=== PATIENT | female | born 1995 | race Caucasian/White ===

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

== ENCOUNTER 2017-01-24 18:13 | Outpatient (CLI) | payer OTHER ==
[2017-01-24 19:09] LABS: APPEARANCE,URINE CLOUDY; BILIRUBIN,URINE NEGATIVE (NEGATIVE); GLUCOSE, URINE NEGATIVE (NEGATIVE); KETONES,URINE TRACE mg/dL (NEGATIVE); LEUKOCYTE ESTERASE,URINE LARGE (NEGATIVE); NITRITE,URINE NEGATIVE (NEGATIVE); PROTEIN,URINE 30 mg/dL (NEGATIVE)
--- NOTE | 2017-01-24 19:21 | Non Stress Test Report ---
Non Stress Test Datetime Report Generated by CPN: 01/24/2017 19:20 DEMOGRAPHIC EGA NST: 37.4 INDICATION Indication for Study: Ordered by Provider Indication for Study (NST) Other: LC MONITORING Monitor Explained: Monitor Explained; Test Explained; Patient Verbalized Understanding Time on Monitor: 01/24/2017 18:55 Time off Monitor: 01/24/2017 19:15 NST Duration: 20 NST INTERVENTIONS NST Interventions: IV Fluids Physician Notified NST: Dr. Neilsen BABY A: [id number] BABY A Movement : Present Contraction Frequency : irr FHR Baseline : 135 Accelerations : 15X15 Decelerations : None Variability : Moderate 6-25bpm NST Review: Meets Criteria for Reactive NST NST Results: Reactive NST REPORT Report Trigger: Send Report
[2017-01-24 19:29] LABS: URINE BARBITURATES SCREEN NEGATIVE; URINE METHADONE SCREEN NEGATIVE; URINE OPIATES LOW NEGATIVE; URINE PHENCYCLIDINE SCREEN NEGATIVE
== END 2017-01-24 19:20 | disposition home or self-care (01) ==
LOC: LC 18:13
PROVIDERS: ATTEND Specialist
PROC: 4A1HXCZ Monitoring of Products of Conception, Cardiac Rate, External Approach (ICD-10-PCS; principal; 2017-01-24)
DX: O36.8130 Decreased fetal movements, third trimester, not applicable or unspecified (principal); O26.893 Other specified pregnancy related conditions, third trimester; R10.9 Unspecified abdominal pain; Z3A.37 37 weeks gestation of pregnancy
CPT/HCPCS: 59025; 80307; 81005

== ENCOUNTER 2017-02-02 20:46 | Outpatient (CLI) | payer OTHER ==
[2017-02-02 21:57] LABS: URINE BARBITURATES SCREEN NEGATIVE; URINE METHADONE SCREEN NEGATIVE; URINE OPIATES LOW NEGATIVE; URINE PHENCYCLIDINE SCREEN NEGATIVE
[2017-02-02 22:00] LABS: APPEARANCE,URINE SLIGHTLY-CLOUDY; BILIRUBIN,URINE NEGATIVE (NEGATIVE); GLUCOSE, URINE NEGATIVE (NEGATIVE); KETONES,URINE NEGATIVE (NEGATIVE); LEUKOCYTE ESTERASE,URINE TRACE (NEGATIVE); NITRITE,URINE NEGATIVE (NEGATIVE); PROTEIN,URINE 30 mg/dL (NEGATIVE); URINE SPECIFIC GRAVITY 1.031
== END 2017-02-02 22:28 | disposition home or self-care (01) ==
LOC: LC 20:46
PROVIDERS: ATTEND Student in an Organized Health Care Education/Training Program
DX: O47.1 False labor at or after 37 completed weeks of gestation (principal); Z3A.38 38 weeks gestation of pregnancy
CPT/HCPCS: 59025; 80307; 81005

== ENCOUNTER 2017-02-03 07:44 | Inpatient (IN) | payer OTHER ==
--- NOTE | 2017-02-03 07:51 | Non Stress Test Report ---
Non Stress Test Datetime Report Generated by CPN: 02/03/2017 07:51 DEMOGRAPHIC Test Number: 2 EGA NST: 38.6 INDICATION Indication for Study: Ordered by Provider MONITORING Monitor Explained: Monitor Explained; Test Explained; Patient Verbalized Understanding Time on Monitor: 02/02/2017 21:03 Time off Monitor: 02/02/2017 22:17 NST Duration: 74 NST INTERVENTIONS NST Interventions: PO Hydration Physician Notified NST: Dr Zee BABY A: [id number] BABY A Movement : Present Contraction Frequency : 4-11 FHR Baseline : 130 Accelerations : 15X15 Decelerations : None Variability : Moderate 6-25bpm NST Review: Meets Criteria for Reactive NST NST Review and Verified By : RICKY VICENTE Results: Reactive NST REPORT Report Trigger: Send Report
[2017-02-03] MEDS ORDERED: RINGERS SOLUTION,LACTATED 1,000 ML IV PRN (08:12)
[2017-02-03] MEDS ORDERED: RINGERS SOLUTION,LACTATED 1,000 ML IV ONE (08:12)
[2017-02-03 08:23] LABS: APPEARANCE,URINE CLOUDY; BILIRUBIN,URINE NEGATIVE (NEGATIVE); GLUCOSE, URINE NEGATIVE (NEGATIVE); KETONES,URINE NEGATIVE (NEGATIVE); LEUKOCYTE ESTERASE,URINE MODERATE (NEGATIVE); NITRITE,URINE NEGATIVE (NEGATIVE); PROTEIN,URINE 100 mg/dL (NEGATIVE); URINE SPECIFIC GRAVITY 1.027
[2017-02-03] MEDS ORDERED: OXYTOCIN/NORMAL SALINE 20 UNIT/1,000 ML RTUINJ ONE (08:35)
[2017-02-03] MEDS ORDERED: LIDOCAINE 1% INJ-PF (10 MG/ML) 30 ML SDV ONE (08:35)
[2017-02-03] MEDS ORDERED: MISOPROSTOL 0.2 MG TABLET ONE (08:35)
[2017-02-03 08:52] LABS: URINE BARBITURATES SCREEN NEGATIVE; URINE METHADONE SCREEN NEGATIVE; URINE OPIATES LOW NEGATIVE; URINE PHENCYCLIDINE SCREEN NEGATIVE
[2017-02-03 08:54] LABS: ABSOLUTE EOSINOPHILS # (AUTO) 0.1 10^3/uL (0.0-0.6); ABSOLUTE LYMPHOCYTES (AUTO) 1.4 10^3/uL (0.5-4.7); ABSOLUTE MONOCYTES (AUTO) 0.7 10^3/uL (0.1-1.4); ABSOLUTE NEUT (AUTO) 9.7 10^3/uL (1.7-8.2); BASOPHILS % (AUTO) 0.2 % (0-2); EOSINOPHILS % (AUTO) 0.7 % (0-6); HEMATOCRIT 31.9 % (36.0-47.0); HEMOGLOBIN 10.2 g/dL (12.0-15.5); HGB HCT DIFFERENCE -1.3; MEAN CORPUSCULAR HEMOGLOBIN 24.5 pg (27.0-33.4); MEAN CORPUSCULAR VOLUME 76 fl (80-97); MONOCYTES % (AUTO) 5.7 % (3-13); RED BLOOD COUNT 4.18 10^6/uL (3.72-5.28); RED CELL DISTRIBUTION WIDTH 15.7 % (11.5-14.0); SEGMENTED NEUTROPHILS % (AUTO) 81.4 % (42-78); WHITE BLOOD COUNT 11.9 10^3/uL (4.0-10.5)
[2017-02-03] MEDS ORDERED: MEASLES,MUMPS&RUBELLA VACC/PF 0.5 ML VIAL SUBCUT PRN (09:36)
[2017-02-03] MEDS ORDERED: BENZOCAINE/MENTHOL AEROSOL SPRAY 56 ML TOP PRN (09:36)
[2017-02-03] MEDS ORDERED: DIPH/PERTUSS(ACELL)/TETANUS VAC/PF 0.5 ML SYR (>=10YO) IM PRN (09:36)
[2017-02-03] MEDS ORDERED: DIBUCAINE 1% OINTMENT 28 GM TP PRN (09:36)
[2017-02-03] MEDS ORDERED: ACETAMINOPHEN WITH CODEINE #3 TABLET PO PRN (09:36)
[2017-02-03] MEDS ORDERED: OXYTOCIN/NORMAL SALINE 1,000 ML IV PRN (09:36)
[2017-02-03] MEDS ORDERED: ZOLPIDEM TARTRATE 5 MG TABLET PO PRN (09:36)
[2017-02-03] MEDS ORDERED: IBUPROFEN 800 MG TABLET ONE (09:49)
--- NOTE | 2017-02-03 11:17 | Admission Physical ---
Datetime Report Generated by CPN: 02/03/2017 11:17 CURRENT ADMISSION Chief Complaint: Uterine Contractions Indication for Induction: Not Applicable Admit Plan: Admit to Unit ALLERGIES Medication Allergies: No Medication Allergies: No Known Allergies (02/02/2017) Medication Allergies: No Known Allergies (01/24/2017) Medication Allergies: No Known Allergies (08/29/2016) Latex: No Latex Allergies Food Allergies: none Environmental Allergies: none OBSTETRICAL HISTORY EDC: 02/10/2017 00:00 : 1 Para: 0 Term: 0 : 0 SAB: 0 IAB: 0 Ectopic: 0 Livin Cesareans: 0 VBACs: 0 Multiple Births: 0 Gestational Diabetes: No Rh Sensitization: No Incompetent Cervix: No ODALYS: No Infertility: No ART Treatment: No Uterine Anomaly: No IUGR: No Hx Previous C/S: No Macrosomia: No Hx Loss/Stillborn: No PIH: No Hx : No Placenta Previa/Abruption: No Depression/PP Depression: No PTL/PROM: No Post Hemorrhage: No Current Procedures: Ultrasound; NST Obstetrical History Comments: G1: Current SEE RECORDS Alcohol: No Marijuana : No Cocaine: No Other Illicit Drugs: No Cigarettes: Never Smoker. [id number] MEDICAL HISTORY Diabetes: No Blood Transfusion: No Pulmonary Disease (Asthma, TB): No Breast Disease: No Hypertension: No Class C Truck Driver Surgery: No Heart Disease: No Hosp/Surgery: No Autoimmune Disorder: No Anesthetic Complications: No Kidney Disease: No Abnormal Pap Smear: No Neuro/Epilepsy: No Psychiatric Disorders: No Other Medical Diseases: No Hepatitis/Liver Disease: No Significant Family History: No Varicosities/Phlebitis: No Trauma/Violence : No Thyroid Dysfunction: No INFECTIOUS HISTORY Gonorrhea: No Genital Herpes: No Chlamydia: No Tuberculosis: No Syphilis: No Hepatitis: No HIV/AIDS Exposure: No Rash or Viral Illness: No HPV: No PHYSICAL EXAM General: Normal HEENT: Normal Neurologic: Normal Thyroid: Deferred Heart: Normal Lungs: Normal Breast: Normal Back: Normal Abdomen: Normal Genitourinary Exam: Normal Extremities: Normal DTRs: Normal Pelvic Type: Adequate Vital Signs: Reviewed VAGINAL EXAM Dilatation: 7 Effacement: 100 Station: 0 Contraction Comments: every 2-5 MEMBRANES Membranes: Ruptured Amniotic Fluid Color: Clear FETUS A EGA: 39.0 Monitoring: External US FHR- Baseline: 125 Variability: Moderate 6-25bpm Accelerations: 15X15 FHR Category: Category I Estimated Weight (gm): 3400 Presentation: Vertex Admit Comment: Ctx every 3 min, unsure if she is leaking, denies bleeding, states active baby. Naval pt, records requested Pt states she is gbs is negative Pt has no significant medical hx, no surgical hx, denies past sti, denies smoking, drug, and etoh hx NKDA Admit to L _ D May have epdiural prn Anticipate PLANS FOR LABOR AND DELIVERY Labor and Delivery: None Other Pain Management Plans: undecided Feeding Preference: Both Circumcision: Yes INFORMED CONSENT Assignment: Mirela Pope MD Signature: with User ID: Rachelle : with User ID: [email or web address]
[2017-02-03] MEDS: SENNOSIDES/DOCUSATE 8.6-50 MG 1 EACH TABLET PO SCH (13:51)
[2017-02-03] MEDS: PRENATAL VITAMIN W-O CA NO5/FE FUMARATE/FA CAPSULE PO SCH (13:51)
[2017-02-03] MEDS: DOCUSATE SODIUM 100 MG CAPSULE PO SCH ×2 (13:51→17:25)
[2017-02-03] MEDS: FERROUS SULFATE 325 MG TABLET PO SCH ×2 (13:51→17:25)
[2017-02-03] MEDS: IBUPROFEN 800 MG TABLET PO SCH ×2 (14:10→22:46)
[2017-02-03] MEDS: ACETAMINOPHEN WITH CODEINE #3 TABLET PO PRN (19:06)
[2017-02-04] MEDS: IBUPROFEN 800 MG TABLET PO SCH ×3 (06:12→21:36)
[2017-02-04 07:39] LABS: HEMOGLOBIN 9.3 g/dL (12.0-15.5); HGB HCT DIFFERENCE -1.1; MEAN CORPUSCULAR HEMOGLOBIN 24.6 pg (27.0-33.4); MEAN CORPUSCULAR VOLUME 77 fl (80-97); RED BLOOD COUNT 3.77 10^6/uL (3.72-5.28); WHITE BLOOD COUNT 10.6 10^3/uL (4.0-10.5)
[2017-02-04] MEDS: FERROUS SULFATE 325 MG TABLET PO SCH ×2 (09:21→17:46)
[2017-02-04] MEDS: DOCUSATE SODIUM 100 MG CAPSULE PO SCH ×2 (09:22→17:51)
[2017-02-04] MEDS: PRENATAL VITAMIN W-O CA NO5/FE FUMARATE/FA CAPSULE PO SCH (09:22)
[2017-02-04] MEDS: SENNOSIDES/DOCUSATE 8.6-50 MG 1 EACH TABLET PO SCH (09:22)
--- NOTE | 2017-02-04 09:31 | Delivery Summary ---
Del Sum A-C Datetime Report Generated by CPN: 02/04/2017 09:31 DELIVERY PERSONNEL DELIVERY PERSONNEL: [phone] DELIVERY PERSONNEL: [phone] DELIVERY PERSONNEL: [phone] Delivery Doctor:: Karina Schafer CNM Nurse Land Measurer Certified:: Karina Schafer CNM Labor and Delivery Nurse:: May Garcia RN Labor and Delivery Nurse:: Raymond Parker RN Farm Labor Contractor:: STANLEY Herrera Stator Tester/OUTPATIENT SURGERY RN: Zoey Randolph CNA II MATERNAL INFORMATION Delivery Anesthesia: Local Medications After Delivery: Pitocin Bolus-Please Comment; Pitocin Drip 20 Units/1000ml NSS Estimated Blood Loss (ml): 200 Maternal Complications: None Provider Comments: Pt progressed to C + 3 with strong urge to push. Pushed effectively, head, shoulders, and body delivered without difficulty. Infant with spontaneous cry and respirations, to maternal abdomen, cord clamped X2, cut free by pts . Spontaneous delivery of placenta, apears intact, 3VC. Vaginal and perineum inspected bilateral periuretheral lacs repaired with lidocaine as above. Hemostasis acheived with external fundal massage and IV pitocin. Routine pp care, mother and baby in stable condition LABOR SUMMARY EDC: 02/10/2017 00:00 No. Babies in Womb: 1 Attempted: No Labor Anesthesia: None LABOR INFORMATION Reason for Induction: Not Applicable Onset of Labor: 02/03/2017 03:00 Complete Dilatation: 02/03/2017 08:46 Oxytocin: N/A Steroids Given: None Reason Steroids Not Administered: Not Applicable MEMBRANES Membranes Rupture Method: Artificial Rupture of Membranes: 02/03/2017 08:40 Length of Rupture (hr): 0.25 Amniotic Fluid Color: Clear Amniotic Fluid Amount: Small STAGES OF LABOR Stage 1 hr: 5 Stage 1 min: 46 Stage 2 hr: 0 Stage 2 min: 9 Stage 3 hr: 0 Stage 3 min: 4 Total Time in Labor hr: 5 Total Time in Labor min: 59 VAGINAL DELIVERY Episiotomy: None Laceration Extension: First Degree Laceration Type: Periurethral Laceration Repair: Yes Laceration Repair Note: bilateral periuretheral lacerations repiared with 3-0 vicryl using interrupted sutures CSECTION DELIVERY Primary Indication: N/A Secondary Indication: N/A CSection Incidence: N/A Labor: N/A Elective: N/A CSection Incision: N/A BABY A INFORMATION Delivery Date/Time: 02/03/2017 08:55 Method of Delivery: Vaginal Born in Route : No : N/A Forceps: N/A Forceps: N/A Vacuum Extraction: N/A Vacuum Extraction: N/A Shoulder Dystocia : No PRESENTATION/POSITION BABY A Presentation: Cephalic Cephalic Presentation: Vertex Breech Presentation: N/A PLACENTA INFORMATION BABY A Placenta Delivery Time : 02/03/2017 08:59 Placenta Method of Delivery: Spontaneous Placenta Status: Delivered SCORES BABY A Heart Rate 1 min: >100 bpm Resp Effort 1 min: Good Cry Reflex Irritability 1 min: Cough or Sneeze or Pulls Away Muscle Tone 1 min: Active Motion Color 1 min: Blue/Pale Resuscitation Effort 1 min: Tactile Stimulation SCORE 1 MIN: 8 Heart Rate 5 min: >100 bpm Resp Effort 5 min: Good Cry Reflex Irritability 5 min: Cough or Sneeze or Pulls Away Muscle Tone 5 min: Active Motion Color 5 min: Body [place], Extremities Blue Resuscitation Effort 5 min: N/A SCORE 5 MIN: 9 Resuscitation Effort 10 min: N/A INFORMATION BABY A Gestational Age at Delivery: 39.0 Gestational Status: Full Term- 39- 40.6 Weeks Infant Outcome : Liveborn Infant Condition : Stable Sex: Male IDENTIFICATION BABY A Verification Date/Time: 02/03/2017 09:17 ID Band Number: [id number] Mother's Name Verified: Yes Infant RN Verifying Infant: K Edis RNC/D [place] RNC WEIGHT/LENGTH BABY A Infant Birthweight (gm): 2930 Weight (lb): 6 Infant Weight (oz): 7 Infant Length (in): 19.50 Length (cm): 49.53 CORD INFORMATION BABY A No. Cord Vessels: 3 Nuchal Cord : N/A Infant Suction: None ASSESSMENT BABY A Infant Complications: None Physical Findings at Delivery: Molding of the Head Respirations: Appears Normal Skin to Skin: Yes Skin to Skin: Yes Skin to Skin: Yes Skin to Skin: Yes Skin to Skin Time (min): 60 Jack Spinner/ALS Called : No Care By: Santiago Randhawa RNC/C Parker RN Transferred To: Remains with Mother BABY B INFORMATION : N/A SIGNATURES Assignment: Mirela Pope MD Signature: with User ID: Rachelle : with User ID: [email or web address]
--- NOTE | 2017-02-04 12:19 | PDOC PROGRESS REPORT ---
Subjective-OB Subjective: Post Delivery Day:1 21 year old G1 now P1 s/p ppd1. Ambulating, voiding and without difficulty. Denies any needs at this time . Physical Exam (OB) Vital Signs: Temp Pulse Resp BP Pulse Ox 97.7 F 74 16 122/61 99 02/04/17 06:14 02/04/17 06:14 02/04/17 06:14 02/03/17 19:50 02/04/17 06:14 - General General Appearance: Appears well In distress: None - PIH/Pre-Eclampsia DTR's: 2 + Clonus: Negative Headache: Absent Epigastric Pain: No Visual Changes: No - Episiotomy/Laceration Site Condition: Well Approximated - Lochia Lochia Amount: Small 10-25 ml Lochia Color: Rubra/Red - Abdomen Description: Soft, Round Hernia Present: No Fundal Description: Firm, Midline Fundal Height: u/u - u/2 - Respiratory Respiratory Status: No respiratory distress - Extremities Upper extremity: Normal inspection Lower extremities: Normal inspection - Neurological Cognition: Normal Orientation: AAOx4 - Psychological Associated symptoms: Normal affect, Normal mood Objective-Diagnostic Laboratory: 02/04/17 07:20 02/04/17 07:20 WBC 10.6 H RBC 3.77 Hgb 9.3 L Hct 29.0 L MCV 77 L MCH 24.6 L MCHC 32.0 RDW 16.0 H Plt Count 165 Assessment and Plan(PN) - Assessment and Plan (1) Vaginal delivery Is this a current diagnosis for this admission?: YesPlan: continue stay (2) Anemia affecting in third trimester Is this a current diagnosis for this admission?: YesPlan: feso4 supplementation and inc. dietary iron - Time Spent with Patient Time with patient: 15-25 minutes Medications reviewed and adjusted accordingly: Yes - Disposition Anticipated Discharge: Home Within: within 24 hours
[2017-02-04] MEDS: ACETAMINOPHEN WITH CODEINE #3 TABLET PO PRN (19:48)
[2017-02-05] MEDS: IBUPROFEN 800 MG TABLET PO SCH ×2 (05:34→13:55)
[2017-02-05 08:27] VITALS: BP 106/54
--- NOTE | 2017-02-05 09:18 | PDOC PROGRESS REPORT ---
Subjective-OB Subjective: Post Delivery Day: 21 year old. Denies any needs at this time. Ready to go home. Physical Exam (OB) Vital Signs: Temp Pulse Resp BP Pulse Ox 98.1 F 75 14 106/54 L 100 02/05/17 07:30 02/05/17 07:30 02/05/17 07:30 02/05/17 07:30 02/05/17 07:30 - PIH/Pre-Eclampsia DTR's: 2 + Clonus: Negative Headache: Absent Epigastric Pain: No Visual Changes: No - Lochia Lochia Amount: Small 10-25 ml Lochia Color: Rubra/Red - Abdomen Description: Soft, Distended Hernia Present: No Bowel Sounds: Normoactive Flatus Presence: Present Stool: Yes Fundal Description: Firm, Midline Fundal Height: u/u - u/2 Objective-Diagnostic Laboratory: 02/04/17 07:20 Assessment and Plan(PN) - Time Spent with Patient Medications reviewed and adjusted accordingly: Yes - Disposition Anticipated Discharge: Home
[2017-02-05] MEDS: SENNOSIDES/DOCUSATE 8.6-50 MG 1 EACH TABLET PO SCH (09:19)
[2017-02-05] MEDS: DOCUSATE SODIUM 100 MG CAPSULE PO SCH (09:19)
--- NOTE | 2017-02-05 09:24 | PDOC DISCHARGE SUMMARY ---
Final Diagnosis Discharge Date: 02/05/17 - Final Diagnosis (1) Anemia affecting in third trimester Is this a current diagnosis for this admission?: Yes (2) Is this a current diagnosis for this admission?: Yes (3) Vaginal delivery Is this a current diagnosis for this admission?: Yes Discharge Data - Discharge Medication Home Medications: Cld612/FA/Omega3/Dha/Fish Oil [ Gummies] 1 each PO DAILY #30 tab.chew Ferrous Sulfate [Feosol 325 mg Tablet] 325 mg PO BID #60 tablet 02/05/17 Gestational Age: 39.0 wks Reason(s) for Admission: Onset of Labor Procedures: NST Intrapartum Procedure(s): Spontaneous Vaginal Delivery - Adams Data Baby 1 Male at 1 minute: 8 at 5 minutes: 9 Weight: 2.92 kg Home with Mother: Yes Complications: No - Diagnosis Test Laboratory: Temp Pulse Resp BP Pulse Ox 98.1 F 75 14 106/54 L 100 02/05/17 07:30 02/05/17 07:30 02/05/17 07:30 02/05/17 07:30 02/05/17 07:30 02/03/17 02/03/17 02/04/17 07:53 08:35 07:20 RBC 4.18 3.77 Hgb 10.2 L 9.3 L Hct 31.9 L 29.0 L Urine Opiates Screen NEGATIVE - Discharge information/Instructions Discharge Activity: Activity As Tolerated, Balance Activity w/Rest, Pelvic Rest , Slowly Increase Activity, No tub bath Discharge Diet: Regular Disposition: HOME, SELF-CARE Follow up with: [facility] in: 4, Weeks
[2017-02-05] MEDS: PRENATAL VITAMIN W-O CA NO5/FE FUMARATE/FA CAPSULE PO SCH (09:44)
[2017-02-05] MEDS: FERROUS SULFATE 325 MG TABLET PO SCH (09:44)
== END 2017-02-05 15:45 | disposition home or self-care (01) | DRG 775 ==
LOC: LC 07:44 → LR 08:12 → 2S 10:55
PROVIDERS: ADMIT Specialist; ATTEND Specialist
PROC: 10E0XZZ Delivery of Products of Conception, External Approach (ICD-10-PCS; principal; 2017-02-03)
PROC: 0UQMXZZ Repair Vulva, External Approach (ICD-10-PCS; 2017-02-03)
PROC: 10907ZC Drainage of Amniotic Fluid, Therapeutic from Products of Conception, Via Natural or Artificial Opening (ICD-10-PCS; 2017-02-03)
PROC: 4A1HXCZ Monitoring of Products of Conception, Cardiac Rate, External Approach (ICD-10-PCS; 2017-02-03)
DX: O99.02 Anemia complicating childbirth (principal); D64.9 Anemia, unspecified; O71.82 Other specified trauma to perineum and vulva; Z3A.39 39 weeks gestation of pregnancy; Z37.0 Single live birth
CPT/HCPCS: 36415; 80307; 81005; 85025; 85027; 86592; 86850; 86900; 86901; J2590; J3490

== ENCOUNTER 2017-12-27 11:27 | Emergency (ER) | payer OTHER ==
[2017-12-27 11:33] VITALS: BP 117/57
--- NOTE | 2017-12-27 11:39 | ER Document Report ---
HPI - HPI Patient complains to provider of: Left nipple burning Onset: Other - Several days and intermittently Onset/Duration: Intermittent Pain Level: 3 Context: 22-year-old female that is breast-feeding and also pumping has left nipple irritation and skin rash. She has tried lanolin but it keeps coming back. Associated Symptoms: None Exacerbated by: Denies Relieved by: Denies Similar symptoms previously: No Recently seen / treated by doctor: No - ROS ROS below otherwise negative: Yes Systems Reviewed and Negative: Yes All other systems reviewed and negative Past Medical History - General Information source: Patient - Social History Smoking Status: Never Smoker Frequency of alcohol use: None Drug Abuse: None Lives with: Family Family History: None - Medical History Medical History: Negative Renal/ Medical History: Denies: Hx Peritoneal Dialysis Surgical Hx: Negative Vertical Provider Document - CONSTITUTIONAL Agree With Documented VS: Yes Exam Limitations: No Limitations General Appearance: No Apparent Distress - INFECTION CONTROL TRAVEL OUTSIDE OF THE [place] IN LAST 30 DAYS: No - DERM Integumentary: Rash - Area volar erythema and minimal fissures without bleeding or infection suspect fungal infection. Course - Vital Signs Vital signs: Temp Pulse Resp BP Pulse Ox 97.7 F 72 16 117/57 L 99 12/27/17 11:31 12/27/17 11:31 12/27/17 11:31 12/27/17 11:31 12/27/17 11:31 Discharge - Discharge Clinical Impression: Left nipple rash Condition: Good Disposition: HOME, SELF-CARE Instructions: Skin Fungus ([facility]), Topical Antifungal ([facility]) Additional Instructions: nystatin three times per day to nipple See your primary care doctor if it persists Prescriptions: Nystatin 100,000 unit TOP TID #120 ml Referrals: SHANIA DURAN MD [ACTIVE STAFF] - Follow up as needed
== END 2017-12-27 12:21 | disposition home or self-care (01) ==
LOC: ER 11:27
DX: R21 Rash and other nonspecific skin eruption (principal)
CPT/HCPCS: 99283

== ENCOUNTER 2018-07-31 15:13 | Emergency (ER) | payer OTHER ==
[2018-07-31] MEDS ORDERED: ONDANSETRON 4 MG TAB.RAPDIS PO ONE (15:59)
--- NOTE | 2018-07-31 15:59 | ER Document Report ---
ED Medical Screen (RME) - General Chief Complaint: Nausea/Vomiting/Diarrhea Stated Complaint: ABDOMINAL PAIN Time Seen by Provider: 07/31/18 15:56 Mode of Arrival: Ambulatory Information source: Patient Notes: 22-year-old female presents to ED for complaint of nausea vomiting diarrhea headache and chills. She also has abdominal pain and pelvic pain. She denies any vaginal bleeding or vaginal discharge. She states her last menstrual period was July [id number]. 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 No other medical history. Patient is alert oriented respirations regular and unlabored speaking in full sentences walks with a even steady gait. She states she is not able to keep any food of fluid ounce today. After her Hcg returns we will give her fluids or Zofran depending on the results. I have greeted and performed a rapid initial assessment of this patient. A comprehensive ED assessment and evaluation of the patient, analysis of test results and completion of medical decision making process will be conducted by an additional ED providers. TRAVEL OUTSIDE OF THE [place] IN LAST 30 DAYS: No - Related Data Allergies/Adverse Reactions: No Known Allergies Allergy (Verified 07/31/18 15:16) Past Medical History Renal/ Medical History: Denies: Hx Peritoneal Dialysis Physical Exam - Vital signs Vitals: Temp Pulse Resp BP Pulse Ox 98.7 F 89 16 114/66 100 07/31/18 15:38 07/31/18 15:38 07/31/18 15:38 07/31/18 15:38 07/31/18 15:38 Course - Vital Signs Vital signs: Temp Pulse Resp BP Pulse Ox 98.7 F 89 16 114/66 100 07/31/18 15:38 07/31/18 15:38 07/31/18 15:38 07/31/18 15:38 07/31/18 15:38
[2018-07-31 16:54] LABS: ABSOLUTE EOSINOPHILS # (AUTO) 0.3 10^3/uL (0.0-0.6); ABSOLUTE LYMPHOCYTES (AUTO) 0.9 10^3/uL (0.5-4.7); ABSOLUTE MONOCYTES (AUTO) 0.5 10^3/uL (0.1-1.4); ABSOLUTE NEUT (AUTO) 9.7 10^3/uL (1.7-8.2); BASOPHILS % (AUTO) 0.4 % (0-2); EOSINOPHILS % (AUTO) 2.4 % (0-6); HEMATOCRIT 41.2 % (36.0-47.0); HEMOGLOBIN 13.5 g/dL (12.0-15.5); LYMPHOCYTES % (AUTO) 7.9 % (13-45); MEAN CORPUSCULAR HEMOGLOBIN 27.2 pg (27.0-33.4); MEAN CORPUSCULAR HGB CONC 32.8 g/dL (32.0-36.0); MEAN CORPUSCULAR VOLUME 83 fl (80-97); MONOCYTES % (AUTO) 4.1 % (3-13); PLATELET COUNT 213 10^3/uL (150-450); RED BLOOD COUNT 4.96 10^6/uL (3.72-5.28); RED CELL DISTRIBUTION WIDTH 13.7 % (11.5-14.0); SEGMENTED NEUTROPHILS % (AUTO) 85.2 % (42-78); TOTAL CELLS COUNTED % (AUTO) 100 %; WHITE BLOOD COUNT 11.3 10^3/uL (4.0-10.5)
[2018-07-31 19:07] LABS: ALANINE AMINOTRANSFERASE 43 U/L (9-52); ALBUMIN 4.8 g/dL (3.5-5.0); ALKALINE PHOSPHATASE 62 U/L (38-126); ANION GAP 13 (5-19); ASPARTATE AMINO TRANSFERASE 24 U/L (14-36); BILIRUBIN,DIRECT 0.1 mg/dL (0.0-0.4); BILIRUBIN,TOTAL 0.8 mg/dL (0.2-1.3); BLOOD UREA NITROGEN 13 mg/dL (7-20); CALCIUM 9.2 mg/dL (8.4-10.2); CARBON DIOXIDE 24 mmol/L (22-30); CHLORIDE 103 mmol/L (98-107); GLUCOSE 87 mg/dL (75-110); POTASSIUM 3.8 mmol/L (3.6-5.0); SODIUM 139.6 mmol/L (137-145); TOTAL PROTEIN 7.4 g/dL (6.3-8.2)
[2018-07-31 19:21] LABS: APPEARANCE,URINE SLIGHTLY-CLOUDY; BILIRUBIN,URINE NEGATIVE (NEGATIVE); COLOR,URINE YELLOW; GLUCOSE, URINE NEGATIVE (NEGATIVE); KETONES,URINE 20 mg/dL (NEGATIVE); LEUKOCYTE ESTERASE,URINE MODERATE (NEGATIVE); NITRITE,URINE NEGATIVE (NEGATIVE); PROTEIN,URINE NEGATIVE (NEGATIVE); URINE SPECIFIC GRAVITY 1.023; UROBILINOGEN,URINE NEGATIVE mg/dL (<2.0)
[2018-07-31] MEDS ORDERED: METOCLOPRAMIDE HCL INJ/PF 10 MG/2 ML SDV IV ONE (19:40)
[2018-07-31] MEDS ORDERED: KETOROLAC TROMETHAMINE INJ/PF 30 MG/1 ML SDV IV ONE (19:40)
[2018-07-31] MEDS ORDERED: NORMAL SALINE 1000 ML 1,000 ML IV ONE (19:40)
[2018-07-31] MEDS ORDERED: ONDANSETRON ODT 4 MG TAB (6 TAB/ER DISP) PO PRN (21:34)
--- NOTE | 2018-07-31 21:35 | ER Document Report ---
ED General - General Chief Complaint: Nausea/Vomiting/Diarrhea Stated Complaint: ABDOMINAL PAIN Time Seen by Provider: 07/31/18 15:56 Mode of Arrival: Ambulatory Notes: Patient is a 22-year-old female without chronic medical problems who presents with 12 hours of nausea, vomiting, diarrhea and abdominal cramping. States this started after eating pizza, her child developed the same symptoms after eating the same food. States that she became concerned as the child symptoms resolved yet she did persist with her symptoms. Has not tried anything to improve her symptoms. Nothing worsens her symptoms. Denies history of similar symptoms in the past. Has not seen her general physician regarding today's concerns. Denies fever or constitutional symptoms. At the time of my evaluation states that her symptoms have resolved and she would like to go home. TRAVEL OUTSIDE OF THE [place] IN LAST 30 DAYS: No - Related Data Allergies/Adverse Reactions: No Known Allergies Allergy (Verified 07/31/18 15:16) Past Medical History - General Information source: Patient - Social History Smoking Status: Never Smoker Frequency of alcohol use: None Drug Abuse: None Lives with: Spouse/Significant other Family History: Reviewed & Not Pertinent Patient has suicidal ideation: No Patient has homicidal ideation: No Renal/ Medical History: Denies: Hx Peritoneal Dialysis Past Surgical History: Reports: Hx Abdominal Surgery Review of Systems - Review of Systems Notes: Constitutional: Negative for fever. HENT: Negative for sore throat. Eyes: Negative for visual changes. Cardiovascular: Negative for chest pain. Respiratory: Negative for shortness of breath. Gastrointestinal: Positive for abdominal cramping, vomiting and diarrhea Genitourinary: Negative for dysuria. Musculoskeletal: Negative for back pain. Skin: Negative for rash. Neurological: Negative for headaches, weakness or numbness. 10 point ROS negative except as marked above and in HPI. Physical Exam - Vital signs Vitals: Temp Pulse Resp BP Pulse Ox 98.7 F 89 16 114/66 100 07/31/18 15:38 07/31/18 15:38 07/31/18 15:38 07/31/18 15:38 07/31/18 15:38 Interpretation: Normal Notes: PHYSICAL EXAMINATION: GENERAL: Well-appearing, well-nourished and in no acute distress. HEAD: Atraumatic, normocephalic. EYES: Pupils equal round and reactive to light, extraocular movements intact, sclera anicteric, conjunctiva are normal. ENT: nares patent, oropharynx clear without exudates. Moist mucous membranes. NECK: Normal range of motion, supple without lymphadenopathy LUNGS: Breath sounds clear to auscultation bilaterally and equal. No wheezes rales or rhonchi. HEART: Regular rate and rhythm without murmurs ABDOMEN: Soft, nontender, normoactive bowel sounds. No guarding, no rebound. No masses appreciated. EXTREMITIES: Normal range of motion, no pitting or edema. No cyanosis. NEUROLOGICAL: No focal neurological deficits. Moves all extremities spontaneously and on command. PSYCH: Normal mood, normal affect. SKIN: Warm, Dry, normal turgor, no rashes or lesions noted. Course - Re-evaluation Re-evalutation: 07/31/18 21:34 Presentation of an overall well-appearing patient in no acute distress with complaints of nausea, vomiting, diarrhea. Patient did complain of some lower abdominal cramping which has completely resolved at the time of my assessment. Her child was sick with the exact same symptoms after eating the same food as the patient. Patient has no abdominal tenderness on exam and specifically no tenderness in the RLQ, LLQ, RUQ. Overall well hydrated on exam. Able to tolerate oral intake here in the emergency department. Low clinical suspicion for any acute life-threatening etiology based on exam and history including acute cholecystitis, SBO, appendicitis, nephrolithiasis, or pylonephritis. CMP without evidence of acute hepatitis or significant dehydration. At this time will discharge with return precautions and follow-up recommendations. Verbal discharge instructions given a the bedside and opportunity for questions given. Medication warnings reviewed. Patient is in agreement with this plan and has verbalized understanding of return precautions and the need for primary care follow-up in the next 24-72 hours. - Vital Signs Vital signs: Temp Pulse Resp BP Pulse Ox 98.5 F 78 16 104/72 100 07/31/18 21:52 07/31/18 21:52 07/31/18 21:52 07/31/18 21:52 07/31/18 21:52 - Laboratory Result Diagrams: 07/31/18 16:40 07/31/18 18:15 Laboratory results interpreted by me: 07/31/18 07/31/18 16:40 16:40 WBC 11.3 H Seg Neutrophils % 85.2 H Lymphocytes % 7.9 L Absolute Neutrophils 9.7 H Urine Ketones 20 H Urine Blood SMALL H Ur Leukocyte Esterase MODERATE H Discharge - Discharge Clinical Impression: Nausea vomiting and diarrhea, Abdominal cramping Condition: Good Disposition: HOME, SELF-CARE Additional Instructions: Your symptoms are likely due to a foodborne illness and should resolve in the next several days. Continue to stay hydrated with plenty of solution such as Gatorade or Pedialyte. You are being prescribed Zofran to take as needed for nausea and vomiting. Please return if you develop severe abdominal pain, pass out, become unable to tolerate any oral fluids for 12 more hours, or any other symptoms that are concerning to you.
[2018-07-31 21:58] VITALS: BP 104/72
== END 2018-07-31 21:58 | disposition home or self-care (01) ==
LOC: ER 15:13
DX: R11.2 Nausea with vomiting, unspecified (principal); R19.7 Diarrhea, unspecified; R10.9 Unspecified abdominal pain
CPT/HCPCS: 99284; 96374; 96375; 36415; 84703; 85025; 80053; 81001; J1885; J2765; J7030; 96361

== ENCOUNTER 2019-05-23 18:57 | Outpatient (CLI) | payer OTHER ==
[2019-05-23 19:43] LABS: APPEARANCE,URINE CLEAR; BILIRUBIN,URINE NEGATIVE (NEGATIVE); COLOR,URINE YELLOW; GLUCOSE, URINE NEGATIVE (NEGATIVE); KETONES,URINE NEGATIVE (NEGATIVE); LEUKOCYTE ESTERASE,URINE SMALL (NEGATIVE); NITRITE,URINE NEGATIVE (NEGATIVE); PROTEIN,URINE NEGATIVE (NEGATIVE); URINE SPECIFIC GRAVITY 1.019; UROBILINOGEN,URINE NEGATIVE mg/dL (<2.0)
[2019-05-23 20:04] LABS: URINE AMPHETAMINES SCREEN NEGATIVE; URINE BARBITURATES SCREEN NEGATIVE; URINE BENZODIAZEPINES SCREEN NEGATIVE; URINE COCAINE SCREEN NEGATIVE; URINE MARIJUANA (THC) SCREEN NEGATIVE; URINE METHADONE SCREEN NEGATIVE; URINE PHENCYCLIDINE SCREEN NEGATIVE
== END 2019-05-23 20:02 | disposition home or self-care (01) ==
LOC: LC 18:57
PROVIDERS: ATTEND Obstetrics & Gynecology
PROC: 4A1HXCZ Monitoring of Products of Conception, Cardiac Rate, External Approach (ICD-10-PCS; principal; 2019-05-23)
DX: O47.02 False labor before 37 completed weeks of gestation, second trimester (principal); Z3A.22 22 weeks gestation of pregnancy
CPT/HCPCS: 80307; 81001